=== PATIENT | female | born 1965 | race Caucasian/White ===

== ENCOUNTER 2024-05-31 13:39 | Outpatient (CLI) | payer BC, SELFPAY | END 2024-05-31 13:40 | disposition home or self-care (01) | LOC: LKVREF 13:41 | PROVIDERS: PCP Family Medicine; Visit Provider Family Medicine | DX: Z00.00 Encounter for general adult medical examination without abnormal findings (principal); E78.00 Pure hypercholesterolemia, unspecified; R10.9 Unspecified abdominal pain; R14.0 Abdominal distension (gaseous) | CPT/HCPCS: 80053 ==

== ENCOUNTER 2025-05-12 13:02 | Outpatient (CLI) | payer BC, SELFPAY | END 2025-05-12 13:03 | disposition home or self-care (01) | LOC: LKVREF 13:04 | PROVIDERS: PCP Family Medicine; Visit Provider Family Medicine | DX: I10 Essential (primary) hypertension (principal); E78.00 Pure hypercholesterolemia, unspecified; R53.83 Other fatigue; E11.9 Type 2 diabetes mellitus without complications | CPT/HCPCS: 80053; 80061; 82043; 82570; 84443 ==

== ENCOUNTER 2025-06-27 13:23 | Outpatient (CLI) | payer BC, SELFPAY ==
--- NOTE | 2025-06-27 13:40 | CRLHL7_ITS ---
For Patients: As a result of the Century Cures Act, medical imaging exams and procedure reports are released immediately into your electronic medical record. You may view this report before your referring provider. If you have questions, please contact your health care provider. BILATERAL DIGITAL SCREENING MAMMOGRAM WITH COMPUTER-AIDED DETECTION AND TOMOSYNTHESIS CLINICAL HISTORY: Routine screening exam. COMPARISON: None. TECHNIQUE: Digital mammogram in CC and MLO projections including computer-aided detection (CAD). Tomosynthesis was used in this interpretation. BREAST COMPOSITION: There are scattered areas of fibroglandular density. FINDINGS: RIGHT Breast: Focal asymmetric density in the upper breast 6 cm from the nipple. LEFT Breast: No suspicious findings. IMPRESSION: RIGHT breast asymmetry/mass. RECOMMENDATIONS: Additional mammographic views of the RIGHT breast including 3D spot-compression CC/MLO. RIGHT breast ultrasound may also be required. The [facility] will contact the patient. A lay language report of this examination will be provided to the patient. BI-RADS Category 0: Incomplete: Need Additional Imaging Evaluation Dictated by Beto Downs MD @ 07/13/2025 9:59:12 AM jj/Dictated by: Beto Downs MD @ 07/13/2025 9:59:00 AM (Electronically Signed)
== END 2025-06-27 13:24 | disposition home or self-care (01) ==
LOC: MAMMO 13:24
PROVIDERS: PCP Family Medicine; Visit Provider Family Medicine
DX: Z12.31 Encounter for screening mammogram for malignant neoplasm of breast (principal); N63.10 Unspecified lump in the right breast, unspecified quadrant
CPT/HCPCS: 77063; 77067

== ENCOUNTER 2025-07-31 09:36 | Outpatient (CLI) | payer BC, SELFPAY ==
--- NOTE | 2025-07-31 09:45 | CRLHL7_ITS ---
For Patients: As a result of the Cures Act, medical imaging exams and procedure reports are released immediately into your electronic medical record. You may view this report before your referring provider. If you have questions, please contact your health care provider. DIGITAL DIAGNOSTIC RIGHT MAMMOGRAM USING TOMOSYNTHESIS RIGHT BREAST ULTRASOUND CLINICAL HISTORY: RIGHT breast mass/asymmetry. COMPARISON: 08/06/2023, 06/27/2025. TECHNIQUE: Digital RIGHT mammogram in two projections. Tomosynthesis was used in this interpretation. Real-time ultrasound imaging of RIGHT breast with imaging documentation. Scanning was performed by both the technologist and the radiologist. BREAST COMPOSITION: There are scattered areas of fibroglandular density. FINDINGS: 3D spot compression CC/MLO RIGHT breast mammogram images submitted. Asymmetric density in the upper RIGHT breast is similar to the outside study 08/06/2023. No underlying architectural distortion or suspicious calcifications. Targeted RIGHT breast ultrasound performed. At 12 o`clock 7 cm from the nipple, there is dense fibroglandular tissue. No underlying mass. IMPRESSION: No evidence of malignancy. RECOMMENDATIONS: Routine screening mammography. A lay language report of this examination will be provided to the patient. BI-RADS Category 2: Benign Dictated by Beto Downs MD @ 07/31/2025 12:08:15 PM jj/Dictated by: Beto Downs MD @ 07/31/2025 12:08:00 PM (Electronically Signed)
--- NOTE | 2025-07-31 10:15 | CRLHL7_ITS ---
For Patients: As a result of the Cures Act, medical imaging exams and procedure reports are released immediately into your electronic medical record. You may view this report before your referring provider. If you have questions, please contact your health care provider. SEE DIGITAL DIAGNOSTIC RIGHT MAMMOGRAM PERFORMED SAME DAY [email or web address] rios/Dictated by: Beto Downs MD @ 07/31/2025 12:05:00 PM (Electronically Signed)
== END 2025-07-31 09:37 | disposition home or self-care (01) ==
LOC: MAMMO 09:37
PROVIDERS: PCP Family Medicine; Visit Provider Family Medicine
DX: N63.10 Unspecified lump in the right breast, unspecified quadrant (principal); R92.8 Other abnormal and inconclusive findings on diagnostic imaging of breast
CPT/HCPCS: 76642; 77065; G0279

== ENCOUNTER 2025-09-07 10:00 | Outpatient (CLI) | payer BC, SELFPAY ==
[2025-09-09 02:41] LABS: HPV Source Cervical
[2025-09-13 08:06] LABS: Pap Test Screened Manually Done
== END 2025-09-07 10:01 | disposition home or self-care (01) ==
PROVIDERS: PCP Family Medicine; Visit Provider Obstetrics & Gynecology
DX: Z12.4 Encounter for screening for malignant neoplasm of cervix (principal)
CPT/HCPCS: 87624; 87625; 88141; 88142; 88175